=== PATIENT | female | born 2000 | race Caucasian/White ===

== ENCOUNTER 2019-02-25 22:20 | Emergency (ER) | payer SELFPAY ==
[~2019-02-25] VITALS: Ht 157.5 cm; Wt 45.5 kg
[~2019-02-25 22:20] MED LIST: NO HOME MEDICATIONS
[2019-02-25 22:29] VITALS: TEMP 98.8
[2019-02-26 00:29] LABS: BASO # 0.1 (0.0-0.2); BASO % 0.6 % (0.0-2.0); EOS # 0.1 (0.0-0.7); EOS % 1.3 % (0-4.0); GRAN # 7.2 (1.4-6.5); GRAN % 65.5 % (42.2-75.2); HEMOGLOBIN 12.2 g/dl (12.0-15.0); LYMPH # 2.2 (1.2-3.4); LYMPH % 19.9 % (20.0-51.0); MEAN CELL VOLUME 89 fl (80.0-95.0); MEAN CORPUSCULAR HEMOGLOBIN 30 pg (26.0-32.0); MEAN CORPUSCULAR HGB CONC 34 g/dl (33.0-37.0); MEAN PLATELET VOLUME 9.7 fl (7.4-10.4); MONO # 1.3 (0.1-0.6); MONO % 11.9 % (1.7-9.3); PLATELET COUNT 286 K/mm3 (130-400); RED BLOOD COUNT 4.03 M/mm3 (4.10-5.30)
[2019-02-26 00:30] LABS: HEMATOCRIT 35.8 % (35.0-45.0)
[2019-02-26 00:43] LABS: ALANINE AMINOTRANSFERASE < 6 U/L (9-52); ALBUMIN 4.6 gm/dL (3.5-5.0); ALKALINE PHOSPHATASE 48 U/L (50-136); ANION GAP 14 mmol/L (7-16); AST,SGOT 26 U/L (15-37); BILIRUBIN,TOTAL 0.6 mg/dL (0.0-1.0); BLOOD UREA NITROGEN 10 mg/dL (7-17); CALCIUM 9.3 mg/dL (8.4-10.2); CARBON DIOXIDE 23 mmol/L (22-30); CHLORIDE 104 mmol/L (98-107); POTASSIUM 3.9 mmol/L (3.4-5.0); SODIUM 141 mmol/L (137-145); TOTAL PROTEIN 8.1 gm/dL (6.4-8.2)
[2019-02-26 00:59] LABS: C-REACTIVE PROTEIN 0.8 mg/dL (0.0-0.9); GLUCOSE 79 mg/dL (74-106); LIPASE 41 U/L (23-300)
[2019-02-26 02:12] LABS: COLLECTION METHOD CLEAN CATCH
[2019-02-26 02:17] LABS: PH 6 (5-8); URINE APPEARANCE Clear; URINE BACTERIA None Seen /hpf; URINE BILIRUBIN Negative (NEGATIVE); URINE BLOOD 1+ (NEGATIVE); URINE COLOR Yellow; URINE GLUCOSE Negative (NEGATIVE); URINE KETONE Trace (NEGATIVE); URINE LEUKOCYTE ESTERASE 1+ (NEGATIVE); URINE NITRATE Negative (NEGATIVE); URINE PROTEIN(semi-quant) Negative (NEGATIVE); URINE RBC 0-2 /hpf; URINE UROBILINOGEN Negative (NEGATIVE)
[2019-02-26 02:55] VITALS: BP 112/70; PULSE 90
== END 2019-02-26 02:55 | disposition home or self-care (01) ==
LOC: COL.ER 22:20
PROVIDERS: Nurse Practitioner
DX: R10.31 Right lower quadrant pain (principal)
CPT/HCPCS: J1170; J2405; J7030; Q9967

== ENCOUNTER 2019-05-06 12:31 | Emergency (ER) | payer OTHER ==
[~2019-05-06] VITALS: Ht 157.5 cm; Wt 49.1 kg
[2019-05-06 12:42] VITALS: BP 123/71; TEMP 98.5
[2019-05-06 13:48] LABS: COLLECTION METHOD CLEAN CATCH
[2019-05-06 13:53] LABS: BASO # 0.1 (0.0-0.2); BASO % 0.5 % (0.0-2.0); EOS # 0.1 (0.0-0.7); GRAN # 6.8 (1.4-6.5); GRAN % 72.3 % (42.2-75.2); HEMATOCRIT 38.8 % (37.0-47.0); LYMPH # 1.5 (1.2-3.4); LYMPH % 16.3 % (20.0-51.0); MEAN CELL VOLUME 90 fl (80.0-100.0); MEAN CORPUSCULAR HEMOGLOBIN 30 pg (27.0-31.0); MEAN CORPUSCULAR HGB CONC 34 g/dl (33.0-37.0); MONO # 0.9 (0.1-0.6); MONO % 9.6 % (1.7-9.3); PLATELET COUNT 298 K/mm3 (130-400); RED BLOOD COUNT 4.33 M/mm3 (4.10-5.30)
[2019-05-06 13:57] LABS: MUCOUS Present /lpf; PH 6 (5-8); SQUAMOUS EPITHELIAL 0-2 /hpf; URINE APPEARANCE Clear; URINE BACTERIA Rare /hpf; URINE BILIRUBIN Negative (NEGATIVE); URINE BLOOD Negative (NEGATIVE); URINE COLOR Yellow; URINE GLUCOSE Negative (NEGATIVE); URINE KETONE Negative (NEGATIVE); URINE LEUKOCYTE ESTERASE Negative (NEGATIVE); URINE NITRATE Negative (NEGATIVE); URINE PROTEIN(semi-quant) Negative (NEGATIVE); URINE RBC 0-2 /hpf; URINE UROBILINOGEN Negative (NEGATIVE)
[2019-05-06 14:06] LABS: ALANINE AMINOTRANSFERASE < 6 U/L (9-52); ALBUMIN 4.8 gm/dL (3.5-5.0); ALKALINE PHOSPHATASE 47 U/L (50-136); ANION GAP 12 mmol/L (7-16); AST,SGOT 24 U/L (15-37); BILIRUBIN,TOTAL 0.5 mg/dL (0.0-1.0); BLOOD UREA NITROGEN 12 mg/dL (7-17); CALCIUM 9.3 mg/dL (8.4-10.2); CARBON DIOXIDE 26 mmol/L (22-30); CHLORIDE 103 mmol/L (98-107); GLUCOSE 82 mg/dL (74-106); LIPASE 74 U/L (23-300); POTASSIUM 3.8 mmol/L (3.4-5.0); SODIUM 141 mmol/L (137-145)
[2019-05-06 14:08] LABS: C-REACTIVE PROTEIN < 0.5 mg/dL (0.0-0.9)
[2019-05-06 15:19] VITALS: PULSE 97
== END 2019-05-06 15:19 | disposition home or self-care (01) ==
LOC: COL.ER 12:31
PROVIDERS: Nurse Practitioner
DX: R10.12 Left upper quadrant pain (principal)

== ENCOUNTER → 2020-03-20 | Outpatient (CLI) | payer SELFPAY | LOC: ZCOL.LAB 15:12 | DX: R07.9 Chest pain, unspecified (principal); R06.02 Shortness of breath; R42 Dizziness and giddiness; Z20.828 Contact with and (suspected) exposure to other viral communicable diseases ==